=== PATIENT | male | born 1975 | race Asian ===

== ENCOUNTER 2023-09-08 08:37 | Outpatient (CLI) | payer BC | END 2023-09-08 08:38 | disposition home or self-care (01) | LOC: CSHULT 08:37 | PROVIDERS: ATTEND Physician Assistant Medical | DX: R10.11 Right upper quadrant pain (principal) | CPT/HCPCS: 76705 ==

== ENCOUNTER 2023-12-14 12:35 | Outpatient (CLI) | payer BC ==
[2023-12-14] MEDS ORDERED: Magnevist 469MG/ML 20 ML VIAL ONE (13:46)
== END 2023-12-14 12:36 | disposition home or self-care (01) ==
LOC: CSHMRI 12:35
PROVIDERS: ATTEND Physician Assistant Medical
DX: R10.11 Right upper quadrant pain (principal)
CPT/HCPCS: 74183; A9579